=== PATIENT | female | born 1970 | race Caucasian/White ===

== ENCOUNTER 2016-09-07 07:45 | Emergency (ER) | payer OTHER ==
[~2016-09-07] VITALS: Ht 157.5 cm; Wt 93.9 kg
[~2016-09-07 07:45] MED LIST: ALBUAER19 INH; NRV5 PO
[2016-09-07 07:47] VITALS: TEMP 36.9; Ht 157.5 cm; Wt 93.9 kg
[2016-09-07] MEDS ORDERED: MoRPHine SULFATE 10 MG/ML CARP/VIAL IV STA (08:28)
[2016-09-07] MEDS ORDERED: ONDANSETRON INJ 2 MG/ML 2 ML VIAL IV STA (08:28)
[2016-09-07] MEDS ORDERED: SODIUM CHLORIDE 0.9% 1000ML 1,000 ML IV STA (08:28)
[2016-09-07 08:41] LABS: BASO % 0.4 %; BASO ABS # 0.03 K/uL (0-0.2); COMPLETE YES; EOS % 2.8 %; HEMATOCRIT 41.3 % (37-47); IG% 0.1 %; LYMPH % 16.4 %; LYMPH ABS # 1.25 K/uL (1.2-3.4); MEAN CELL VOLUME 83.9 fL (80-100); MEAN CORPUSCULAR HEMOGLOBIN 29.5 pg (25-34); MEAN CORPUSCULAR HGB CONC 35.1 g/dl (32-36); MONO % 10.5 %; NEUT % 69.8 %; PLATELET COUNT 245 K/uL (130-400); RED BLOOD COUNT 4.92 M/uL (4.2-5.4); WHITE BLOOD COUNT 7.62 K/uL (4.8-10.8)
[2016-09-07] MEDS ORDERED: OPTIRAY 320 IV PRN (08:45)
[2016-09-07] MEDS ORDERED: PRVHFAIN INH (08:53)
[2016-09-07 08:59] LABS: URINE APPEARANCE CLEAR (CLEAR); URINE BILIRUBIN NEG (NEG); URINE COLOR YELLOW; URINE NITRITE NEG (NEG); URINE SPECIFIC GRAVITY 1.008 (1.000-1.030); UROBILINOGEN NEG (NEG)
[2016-09-07 09:03] LABS: MANUAL MICROSCOPIC REQUIRED? NO; REVIEW REQ? NO
[2016-09-07 09:16] LABS: ALKALINE PHOSPHATASE 108 U/L (45-117); ALT/SGPT 28 U/L (12-78); BLOOD UREA NITROGEN 11 mg/dl (7-18); BUN/CREATININE RATIO 15.3 (10-20); CALCIUM 8.8 mg/dl (8.5-10.1); CARBON DIOXIDE 23 mmol/L (21-32); CHLORIDE 104 mmol/L (98-107); CREATININE 0.73 mg/dl (0.60-1.20); GLUCOSE 111 mg/dl (70-99)
[2016-09-07 09:27] LABS: AST/SGOT 18 U/L (15-37); POTASSIUM 3.9 mmol/L (3.5-5.1); SODIUM 137 mmol/L (136-145)
--- NOTE | 2016-09-07 09:57 | DIAGNOSTIC IMAGING REPORT ---
EXAMINATION: PELVIC ULTRASOUND CLINICAL HISTORY: pelvic pain with mild R sided prom COMPARISON STUDY: None FINDINGS: The uterus measured 10 cm several small fibroids measures 2.5 cm.. The endometrial stripe measured 9 mm. The right ovary measured 2.7 cm maximum dimension. Normal vascular flow. The left ovary measured 2.5 cm maximum dimension with normal vascular flow. There is no ultrasonographic evidence of ovarian torsion. It should be noted that ovarian torsion can be present with normal Doppler ultrasonographic findings. There was no evidence of pathologic free pelvic fluid. IMPRESSION: Several small uterine fibroids. Otherwise negative study Electronically signed by: Chico Espitia M.D. 09/07/2016 9:56 AM Dictated Date/Time: 09/07/2016 9:55 AM
[2016-09-07] MEDS ORDERED: MoRPHine SULFATE 4 MG/ML 1 ML CARP\\VIAL IV STA (10:46)
--- NOTE | 2016-09-07 12:27 | DIAGNOSTIC IMAGING REPORT ---
ABDOMEN AND PELVIS CT WITH IV AND ORAL CONTRAST CT DOSE: 1280.01 mGycm HISTORY: Pain ABDOMINAL PAIN/GI TECHNIQUE: Multiaxial CT images of the abdomen and pelvis were performed following the use of intravenous and oral contrast. COMPARISON STUDY: None. FINDINGS: Lung bases are clear. Liver spleen and pancreas are unremarkable. Kidneys negative for hydronephrosis. Bowel pattern is nonobstructive. Several small uterine fibroids. Several small ovarian follicular cysts. The appendix is normal. Trace free fluid within the pelvic cul-de-sac possibly physiologic. IMPRESSION: No significant abnormality identified within the abdomen or pelvis. Electronically signed by: Chico Espitia M.D. 09/07/2016 12:25 PM Dictated Date/Time: 09/07/2016 12:21 PM
[2016-09-07 13:09] VITALS: BP 150/76; PULSE 66; O2SAT 96
--- NOTE | 2016-09-08 22:53 | EMERGENCY ROOM VISIT NOTE ---
ED Visit Note First contact with patient: 08:02 Chief Complaint: Abdominal pain. History of Present Illness: Ms. Araujo is a 46 year-old white female complaining of bilateral lower quadrant abdominal pain. Historically patient reports sarcoidosis, status post section and tubal ligation Patient reports a gradual onset of severe bilateral lower quadrant abdominal pain that started approximately 2 days ago. Since that time the pain has been constant but slowly increasing in intensity. She describes the pain as a stabbing sensation with slight right-sided prominence. She rates her discomfort 5/10. The pain is nonradiating. She has not identified any aggravating or alleviating factors related to the pain. She has been using over -the-counter medications without relief of her discomfort. Associated with her pain she reports she's been having some chills and nausea but no yudith vomiting or fevers. Patient denies sweats, skin eruptions, skin color changes, upper respiratory tract symptoms, shortness of breath, chest pain, diarrhea, constipation, rectal bleeding, black/tarry stools, urinary symptoms, hematuria, vaginal bleeding, vaginal discharge, back/flank pain. Review of Systems: As noted above in history of present illness. All body systems were reviewed and found to be negative as noted above. Past Medical History: As noted above and hypertension. Current Medications: Albuterol inhaler. Allergies to Medications: Norvasc. Social History: Patient is currently employed; she feels safe in her home environment; she denies tobacco use; she admits to social alcohol use. Physical Examination: Vital Signs: Date Time Temp Pulse Resp B/P Pulse Ox O2 Delivery O2 Flow Rate FiO2 09/07/16 13:09 66 16 150/76 96 09/07/16 11:00 68 18 163/83 99 Room Air 09/07/16 09:54 71 16 147/104 98 09/07/16 07:47 36.9 88 18 155/89 99 Room Air GENERAL: 46-year-old female in mild to moderate distress due to pain, nontoxic- appearing, afebrile and hemodynamically stable. NEUROLOGICAL: Awake, alert and oriented to person, place and time. Answering questions appropriately and following commands. Normal gait. Good hand eye coordination. SKIN: Warm, dry and pink. No soft tissue eruptions or trauma noted. HEENT: Atraumatic and normocephalic. PERRLA. Sclera white and conjunctiva pink. Oral cavity moist and pink. Pharynx is nonerythematous or edematous. Speech normal. No lymphadenopathy. Trachea midline. No jugular venous distention. BACK: No tenderness over the bony spine. No CVA tenderness. THORAX: Lungs sounds are clear to auscultation and equal bilaterally with symmetrical chest wall. No wheezing, rales or rhonchi. No crepitus, tenderness , subcutaneous air or deformities noted. HEART: Regular rate and rhythm. No gallops, rubs or murmurs are appreciated. ABDOMEN: Flat and soft with moderate tenderness in the right lower quadrant just inferior and medial to McBurney's point and mild tenderness in the left lower quadrant. Positive bowel sounds in all quadrants. No guarding, rigidity or organomegaly. EXTREMITIES: Moves all extremities well on command and with purpose. All distal neurovascular statuses are intact and equal bilaterally. ED Course: Patient is assessed as noted above. Laboratory Testing: Test 09/07/16 08:10 09/07/16 08:15 Range/Units Urine Color YELLOW Urine Appearance CLEAR CLEAR Urine pH 7.0 4.5-7.5 Urine Specific [place] 1.008 1.000-1.030 Urine Protein NEG NEG Urine Glucose (UA) NEG NEG Urine Ketones NEG NEG Urine Occult Blood NEG NEG Urine Nitrite NEG NEG Urine Bilirubin NEG NEG Urine Urobilinogen NEG NEG Urine Leukocyte Esterase NEG NEG Urine Test NEG NEG White Blood Count 7.62 4.8-10.8 K/uL Red Blood Count 4.92 4.2-5.4 M/uL Hemoglobin 14.5 12.0-16.0 g/dL Hematocrit 41.3 37-47 % Mean Corpuscular Volume 83.9 80-100 fL Mean Corpuscular Hemoglobin 29.5 25-34 pg Mean Corpuscular Hemoglobin Concent 35.1 32-36 g/dl Platelet Count 245 130-400 K/uL Mean Platelet Volume 10.0 7.4-10.4 fL Neutrophils (%) (Auto) 69.8 % Lymphocytes (%) (Auto) 16.4 % Monocytes (%) (Auto) 10.5 % Eosinophils (%) (Auto) 2.8 % Basophils (%) (Auto) 0.4 % Neutrophils # (Auto) 5.32 1.4-6.5 K/uL Lymphocytes # (Auto) 1.25 1.2-3.4 K/uL Monocytes # (Auto) 0.80 0.11-0.59 K/uL Eosinophils # (Auto) 0.21 0-0.5 K/uL Basophils # (Auto) 0.03 0-0.2 K/uL RDW Standard Deviation 39.7 36.4-46.3 fL RDW Coefficient of Variation 13.2 11.5-14.5 % Immature Granulocyte % (Auto) 0.1 % Immature Granulocyte # (Auto) 0.01 0.00-0.02 K/uL Sodium Level 137 136-145 mmol/L Potassium Level 3.9 3.5-5.1 mmol/L Chloride Level 104 98-107 mmol/L Carbon Dioxide Level 23 21-32 mmol/L Anion Gap 10.0 3-11 mmol/L Blood Urea Nitrogen 11 7-18 mg/dl Creatinine 0.73 0.60-1.20 mg/dl Est Creatinine Clear Calc Drug Dose 102.8 ml/min Estimated GFR () 114.5 Estimated GFR (Non- 98.8 BUN/Creatinine Ratio 15.3 10-20 Random Glucose 111 70-99 mg/dl Calcium Level 8.8 8.5-10.1 mg/dl Total Bilirubin 0.6 0.2-1 mg/dl Direct Bilirubin 0-0.2 mg/dl Aspartate Amino Transf (AST/SGOT) 18 15-37 U/L Alanine Aminotransferase (ALT/SGPT) 28 12-78 U/L Alkaline Phosphatase 108 45-117 U/L Total Protein 7.5 6.4-8.2 gm/dl Albumin 3.8 3.4-5.0 gm/dl Lipase 93 73-393 U/L Chemistry Specimen Hemolysis Pelvic Ultrasound: Was reviewed by myself and read by the radiologist showing several small uterine fibroids, normal-appearing right and left ovaries with normal vascular flow, normal-appearing endometrial stripe and no evidence of pathological free fluid. Contrast Abdominal/Pelvic CT: Was reviewed by myself and read by the radiologist showing clear lung bases, spleen and pancreas unremarkable, kidneys no hydronephrosis, nonobstructive bowel gas pattern, several small uterine fibroids, several small ovarian follicle cysts, normal-appearing appendix, trace free fluid in the cul-de-sac; no significant abnormalities within the abdomen or pelvis. Patient was hydrated with normal saline and she received a total of 10 mg of morphine IV and 4 mg of Zofran IV. Patient was reassessed multiple times during her stay in the emergency department. Patient's case was reviewed with Dr. Rico; we agreed on diagnostic approach, treatment, disposition and plan. Patient was educated about millie's findings and instructed on her treatment plan; she verbalizes understanding and agreement with this plan. Clinical Impression: Acute bilateral lower abdominal pain. Decision-Making: Initially my differential diagnosis I considered ectopic , ovarian torsion, ovarian cyst rupture, constipation, pancreatitis, appendicitis, urinary tract infection, PID and other causes. Disposition: Patient discharged home in stable condition; prior to departure she was reassessed and subjectively reported she was feeling better. She rated her discomfort 3/10 and reported resolution of nausea. Plan: Patient was encouraged to alternate ibuprofen and acetaminophen as needed for pain. Patient was encouraged to stay well-hydrated with increased clear fluids. Patient was encouraged to follow-up with her PCP for recheck in one to 2 days. Patient was encouraged return the ED for worsening/uncontrolled pain, bloody stools, vaginal bleeding, fevers, urinary symptoms or any new/concerning symptoms.
== END 2016-09-07 13:11 | disposition home or self-care (01) ==
LOC: C.EDB 07:46 → C.EDA 13:11
DX: R10.30 Lower abdominal pain, unspecified (principal); Z98.51 Tubal ligation status

== ENCOUNTER 2016-10-06 15:45 | Emergency (ER) | payer OTHER ==
[~2016-10-06] VITALS: Ht 157.5 cm; Wt 91.0 kg
[~2016-10-06 15:45] MED LIST changes: -ALBUAER19 INH; -NRV5 PO; +PRVHFAIN INH
[2016-10-06 16:01] VITALS: TEMP 37.3; Ht 157.5 cm; Wt 91.0 kg
[2016-10-06] MEDS ORDERED: NAPR1CAP12 PO (16:14)
[2016-10-06] MEDS ORDERED: SODIUM CHLORIDE 0.9% 1000ML 500 ML IV STA (17:07)
--- NOTE | 2016-10-06 17:12 | EMERGENCY ROOM VISIT NOTE ---
History Report prepared by Alyce: Jourdan Portillo Under the Supervision of: Dr. Royer Clark M.D. First contact with patient: 16:58 Chief Complaint: OTHER COMPLAINT Stated Complaint: HTN 199/93, BLURRED VISION, RED History of Present Illness The patient is a 46 year old female who presents to the Emergency Room with complaints of an episode of visual problems occurring about 1 hour ago. 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 She notes this affected both of her eyes. This episode lasted about 15 minutes, and it resolved on its own. She denies having any headache during or after the episode , and also denies any arm or leg weakness, chest pain, or abdominal pain. The patient does report also having chest redness occurring with the episode of visual disturbance that was not itchy but just warm. She adds that her blood pressure became elevated to 199/110. She denies being on any blood pressure medication. The patient reports her left eye is currently blurry. She denies any history of migraines, and does not wear glasses or contacts. She reports having numbness in her jaw at baseline due to her history of sarcoidosis. Source of History: patient Onset: about 1 hour ago Position: eye (bilateral) Symptom Intensity: episode lasting 15 minutes Quality: other (visual problem) Timing: other (episode) Modifying Factors (Worsening): other (light) Associated Symptoms: + rash, No abdominal pain, No chest pain, No headache, No weakness Review of Systems See HPI for pertinent positives & negatives. A total of 10 systems reviewed and were otherwise negative. Past Medical & Surgical Medical Problems: (1) Allergy to adhesive (2) History of sarcoidosis (3) Normal cardiac stress test (4) Shortness of breath Surgical Problems: (1) History of delivery (2) History of tubal ligation Social History Smoking Status: Never Smoker Alcohol Use: occasionally Drug Use: none Marital Status: Housing Status: lives with family Occupation Status: employed Current/Historical Medications Scheduled PRN Albuterol (Ventolin Hfa), 2 PUFFS INH Q4H PRN for Shortness of Breath Miscellaneous Medications Naproxen Sodium (Aleve), 2 TABS PO Allergies Coded Allergies: Amlodipine (Verified Allergy, Severe, SWELLING, 10/06/16) Adhesives (Verified Allergy, Intermediate, RASH-REDNESS, 10/06/16) Physical Exam Vital Signs Date Time Temp Pulse Resp B/P Pulse Ox O2 Delivery O2 Flow Rate FiO2 10/06/16 21:05 75 20 149/88 96 Room Air 10/06/16 17:39 76 18 150/89 98 Room Air 10/06/16 17:29 66 10/06/16 16:01 37.3 78 16 175/94 99 Physical Exam GENERAL: Patient is in no acute distress. HEENT: No acute trauma, normocephalic atraumatic, mucous membranes moist, no nasal congestion, no scleral icterus. Pupils are equal, round, and reactive to light. NECK: No stridor, no adenopathy, no meningismus, trachea is midline. LUNGS: Clear to auscultation bilaterally, no wheeze, no rhonchi, breath sounds equal. HEART: Without murmurs gallops or rubs, regular rate and rhythm. ABDOMEN: Soft, nontender, bowel sounds positive, no hernias, no peritonitis. EXTREMITIES: No cyanosis or edema, full range of motion of all the joints without pain or difficulty, no signs for acute trauma. NEUROLOGIC: Oriented x 3, no acute motor or sensory deficits, no focal weakness. No cerebellar deficits or pronator drift. SKIN: Flushing of the shoulders and chest. No cellulitis. No petechiae. Medical Decision & Procedures ER Provider Diagnostic Interpretation: Radiology results and stated below per my review and radiologist interpretation: MRI OF THE BRAIN WITHOUT AND WITH IV CONTRAST FINDINGS: Normal study. No evidence for an acute ischemic process. Signal characteristics are unremarkable throughout. No abnormal postcontrast enhancement. IMPRESSION: Normal study. Electronically signed by: Chico Espitia M.D. 10/06/2016 9:15 PM Dictated Date/Time: 10/06/2016 9:13 PM Laboratory Results 10/06/16 17:20 Red Blood Count 4.91, Mean Corpuscular Volume 85.9, Mean Corpuscular Hemoglobin 29.9, Mean Corpuscular Hemoglobin Concent 34.8, Mean Platelet Volume 10.1, Neutrophils (%) (Auto) 70.8, Lymphocytes (%) (Auto) 16.2, Monocytes (%) (Auto) 10.2, Eosinophils (%) (Auto) 2.3, Basophils (%) (Auto) 0.2, Neutrophils # (Auto ) 6.89, Lymphocytes # (Auto) 1.58, Monocytes # (Auto) 0.99, Eosinophils # (Auto ) 0.22, Basophils # (Auto) 0.02 10/06/16 17:20 Test 10/06/16 17:20 10/06/16 17:25 White Blood Count 9.73 K/uL (4.8-10.8) Red Blood Count 4.91 M/uL (4.2-5.4) Hemoglobin 14.7 g/dL (12.0-16.0) Hematocrit 42.2 % (37-47) Mean Corpuscular Volume 85.9 fL (80-100) Mean Corpuscular Hemoglobin 29.9 pg (25-34) Mean Corpuscular Hemoglobin Concent 34.8 g/dl (32-36) Platelet Count 244 K/uL (130-400) Mean Platelet Volume 10.1 fL (7.4-10.4) Neutrophils (%) (Auto) 70.8 % Lymphocytes (%) (Auto) 16.2 % Monocytes (%) (Auto) 10.2 % Eosinophils (%) (Auto) 2.3 % Basophils (%) (Auto) 0.2 % Neutrophils # (Auto) 6.89 K/uL (1.4-6.5) Lymphocytes # (Auto) 1.58 K/uL (1.2-3.4) Monocytes # (Auto) 0.99 K/uL (0.11-0.59) Eosinophils # (Auto) 0.22 K/uL (0-0.5) Basophils # (Auto) 0.02 K/uL (0-0.2) RDW Standard Deviation 42.4 fL (36.4-46.3) RDW Coefficient of Variation 13.5 % (11.5-14.5) Immature Granulocyte % (Auto) 0.3 % Immature Granulocyte # (Auto) 0.03 K/uL (0.00-0.02) Anion Gap 6.0 mmol/L (3-11) Estimated GFR () 102.5 Estimated GFR (Non- 88.4 BUN/Creatinine Ratio 16.6 (10-20) Calcium Level 9.1 mg/dl (8.5-10.1) Total Bilirubin 0.5 mg/dl (0.2-1) Aspartate Amino Transf (AST/SGOT) 22 U/L (15-37) Alanine Aminotransferase (ALT/SGPT) 28 U/L (12-78) Alkaline Phosphatase 97 U/L (45-117) Total Protein 7.8 gm/dl (6.4-8.2) Albumin 4.2 gm/dl (3.4-5.0) Globulin 3.6 gm/dl (2.5-4.0) Albumin/Globulin Ratio 1.2 (0.9-2) Thyroid Stimulating Hormone (TSH) 2.140 uIu/ml (0.300-4.500) Chemistry Specimen Hemolysis Urine Color YELLOW Urine Appearance CLEAR (CLEAR) Urine pH 6.0 (4.5-7.5) Urine Specific [place] 1.030 (1.000-1.030) Urine Protein NEG (NEG) Urine Glucose (UA) NEG (NEG) Urine Ketones TRACE (NEG) Urine Occult Blood NEG (NEG) Urine Nitrite NEG (NEG) Urine Bilirubin NEG (NEG) Urine Urobilinogen NEG (NEG) Urine Leukocyte Esterase NEG (NEG) Laboratory results reviewed by me. Medications Administered Medications (Trade) Dose Ordered Sig/Jennifer Route Start Time Stop Time Status Last Admin Dose Admin Sodium Chloride (Nss 1000ml) 500 ml @ 999 mls/hr Q31M STAT IV 10/06/16 17:07 10/06/16 17:37 DC 10/06/16 17:07 999 MLS/HR ECG Indication: other (visual distrubance) Rate (beats per minute): 66 Rhythm: normal sinus Findings: no acute ischemic change, no ectopy ED Course 1659: The patient was evaluated in room C9. A complete history and physical exam was performed. 1706: Ordered NSS 500 ml @ 999 mls/hr IV. 180: Visual acuity was 20/50 in both eyes. 2129: I reassessed the patient and she is feeling better. 2134: Reevaluated the patient. Discussed results and discharge instructions: She verbalized understanding and agreement. The patient is ready for discharge. Medical Decision Differentials include migraine variant, hypertension, electrolyte imbalance, anemia, infection, and stroke. There is no leukocytosis or concerning anemia. No significant electrolyte abnormality, kidney failure, hepatitis. The patient appears to be in a euthyroid state. Urinalysis does not show infection. EKG shows a sinus rhythm , no acute ischemia. On exam, there were no focal neurologic deficits. The patient was not toxic or febrile. Brain MRI shows no mass, strokelike lesion or demyelination. The patient's blood pressure has come down on its own without any medication intervention. Her visual disturbance has resolved. A visual acuity was done and her vision was equal on both sides at 20/50. I am not sure how to explain today's event, certainly, this may have been a migraine variant. The patient will be seeing her eye doctor tomorrow for a thorough eye exam. She will see her family doctor's office about her elevated blood pressure and the need for potentially antihypertensive medications. The patient can return here for any return of symptoms. Impression Primary Impression: Visual disturbance Additional Impression: HTN (hypertension) Scribe Attestation The scribe's documentation has been prepared under my direction and personally reviewed by me in its entirety. I confirm that the note above accurately reflects all work, treatment, procedures, and medical decision making performed by me. Departure Information Dispostion Home / Self-Care Referrals Tiffanie Bai M.D. (PCP) Patient Instructions My [facility] Additional Instructions see eye doctor--call in the am for an appt see your doctor for a recheck and recheck of your blood pressure MRI today was ok lab testing was ok return if worsening Problem Qualifiers
[2016-10-06 17:38] LABS: BASO % 0.2 %; BASO ABS # 0.02 K/uL (0-0.2); COMPLETE YES; EOS % 2.3 %; HEMATOCRIT 42.2 % (37-47); IG% 0.3 %; LYMPH % 16.2 %; LYMPH ABS # 1.58 K/uL (1.2-3.4); MEAN CELL VOLUME 85.9 fL (80-100); MEAN CORPUSCULAR HEMOGLOBIN 29.9 pg (25-34); MEAN CORPUSCULAR HGB CONC 34.8 g/dl (32-36); MEAN PLATELET VOLUME 10.1 fL (7.4-10.4); MONO % 10.2 %; NEUT % 70.8 %; PLATELET COUNT 244 K/uL (130-400); RED BLOOD COUNT 4.91 M/uL (4.2-5.4); WHITE BLOOD COUNT 9.73 K/uL (4.8-10.8)
[2016-10-06 17:42] LABS: URINE APPEARANCE CLEAR (CLEAR); URINE BILIRUBIN NEG (NEG); URINE COLOR YELLOW; URINE NITRITE NEG (NEG); UROBILINOGEN NEG (NEG); ZZUR CULT IF INDIC CLEAN CATCH NO
[2016-10-06 17:53] LABS: MANUAL MICROSCOPIC REQUIRED? NO; REVIEW REQ? NO
[2016-10-06 18:39] LABS: ALB/GLOB RATIO 1.2 (0.9-2); ALKALINE PHOSPHATASE 97 U/L (45-117); ALT/SGPT 28 U/L (12-78); AST/SGOT 22 U/L (15-37); BLOOD UREA NITROGEN 13 mg/dl (7-18); BUN/CREATININE RATIO 16.6 (10-20); CALCIUM 9.1 mg/dl (8.5-10.1); CARBON DIOXIDE 28 mmol/L (21-32); CHLORIDE 106 mmol/L (98-107); GLUCOSE 99 mg/dl (70-99); POTASSIUM 3.7 mmol/L (3.5-5.1); SODIUM 140 mmol/L (136-145)
[2016-10-06 21:05] VITALS: BP 149/88; PULSE 75; O2SAT 96
[2016-10-06] MEDS ORDERED: GADAVIST IV PRN (21:15)
--- NOTE | 2016-10-06 21:16 | DIAGNOSTIC IMAGING REPORT ---
MRI OF THE BRAIN WITHOUT AND WITH IV CONTRAST CLINICAL HISTORY: visual change, left eye blurry COMPARISON STUDY: No previous studies for comparison. TECHNIQUE: Utilizing a 1.5 Jenny magnet and dedicated coil, multiplanar, multiecho imaging of the brain was performed pre and postcontrast administration. IV administration of 8 mL of Gadavist contrast was uneventful. FINDINGS: Normal study. No evidence for an acute ischemic process. Signal characteristics are unremarkable throughout. No abnormal postcontrast enhancement. IMPRESSION: Normal study. Electronically signed by: Chico Espitia M.D. 10/06/2016 9:15 PM Dictated Date/Time: 10/06/2016 9:13 PM
== END 2016-10-06 21:43 | disposition home or self-care (01) ==
LOC: C.EDB 15:46 → C.EDC 21:43
DX: H53.8 Other visual disturbances (principal); I10 Essential (primary) hypertension; Z98.51 Tubal ligation status